=== PATIENT | female | born 1940 | race Caucasian/White ===

== ENCOUNTER → 2017-08-30 | Outpatient (CLI) | payer MEDICARE, OTHER ==
--- NOTE | 2017-08-30 09:34 | RAD ---
Pelvis one view INDICATION: Right hip pain IMPRESSION: Severe [id number] osteoarthrosis right hip. Left hip shows only very minimal degenerative change. No fracture or focal destructive lesion. No acetabular protrusio. No advanced collapse or definite avascular necrosis Electronically signed by: Roderick Kang MD 08/30/2017 9:32 AM CDT
--- NOTE | 2017-08-30 16:11 | CT ---
EXAM DESCRIPTION: Lower Extremity CLINICAL HISTORY: 76 years Female, PAIN IN RIGHT HIP COMPARISON: Radiograph of the pelvis performed on the same day. TECHNIQUE: Contiguous axial images through the right hip were performed without intravenous contrast administration. Sagittal, coronal and 3-D reconstructions were reviewed. FINDINGS: The visualized bones appear well mineralized. No acute fracture or dislocation. There is severe joint space narrowing, subchondral sclerosis, osteophyte formation and subchondral cysts in the right hip joint, consistent with moderate to severe osteoarthritis. Enthesopathy changes are identified along the greater trochanter. There is mild atrophy of the gluteus muscles. Incidental note is made of mild constipation. IMPRESSION: Moderate to severe osteoarthritis of the right hip joint. This exam was performed according to our departmental dose-optimization program, which includes automated exposure control, adjustment of the mA and/or kV according to patient size and/or use of iterative reconstruction technique. Electronically signed by: Deandra Ricketts MD 08/30/2017 4:10 PM CDT
== END ==
LOC: CT 13:23
PROVIDERS: ATTEND Orthopaedic Surgery
DX: M16.11 Unilateral primary osteoarthritis, right hip (principal)

== ENCOUNTER → 2017-09-13 | Outpatient (CLI) | payer MEDICARE, OTHER | LOC: LAB.O 11:16 | PROVIDERS: ATTEND Orthopaedic Surgery | DX: Z01.818 Encounter for other preprocedural examination (principal); M16.11 Unilateral primary osteoarthritis, right hip ==

== ENCOUNTER → 2017-10-19 | Outpatient (CLI) | payer MEDICARE, OTHER ==
--- NOTE | 2017-10-08 11:15 | HP ---
CHIEF COMPLAINT: Right hip pain. HISTORY OF PRESENT ILLNESS: Ms. Celaya is a 76-year-old female with a history of hip pain that has been going on for a very long time. She has had no trauma related to this, denies any radiation of pain and denies any neurologic symptoms. She has exhausted conservative measures and is having to rely on assistive devices for ambulation. Because of the failure of conservative measures, she has requested operative intervention. After discussing the risks , benefits and alternatives to that, the patient has given informed consent. PAST SURGICAL HISTORY: 1. x3. 2. Cardiac stent placement. MEDICATIONS: 1. Hydrocodone. 2. Osteo-BiFlex. ALLERGIES: NO KNOWN DRUG ALLERGIES. CODE STATUS: Full code. IMMUNIZATIONS: Up to date. FAMILY HISTORY: None pertinent to today's complaint. SOCIAL HISTORY: The patient does not drink, smoke or use any illicit drugs. REVIEW OF SYSTEMS: Negative except as indicated in the History of Present Illness. PHYSICAL EXAMINATION: VITAL SIGNS: Blood pressure 172/80. Pulse 65. Height 5'1". Weight 184 pounds. MENTAL STATUS: The patient is awake, alert, and is able to give a good history and participate in the physical. The patient is oriented to person, place and time. SKIN: Normal tone and turgor. HEENT: Normocephalic, atraumatic. Pupils equal, round and reactive. Mucosal membranes are moist. NECK: Normal range of motion. No thyromegaly, no lymphadenopathy. CHEST: Normal respiratory excursion. CARDIAC: Regular rate and rhythm. No murmurs, rubs or gallops. MUSCULOSKELETAL: She has full range of motion in the upper extremities. She has intact sensation as well. There is no deformity, no crepitus and no laxity in the extremities. The left lower extremity shows full range of motion in the hip. She has no significant pain with range of motion of the hip. She does have pain with range of motion of the knee and has pain to palpation. She has no instability, varus/valgus or anterior/posterior laxity. The right hip shows severe pain with range of motion during internal and external rotation. She has intact sensation distally. She walks with an antalgic gait. She has no deformity. She has flexion to about 90 degrees of the hip. Flexion of the knee is to about 120 degrees and she has full extension. IMAGING: X-rays show severe arthritis. ASSESSMENT: 1. Endstage arthritis of the hip. PLAN: The plan at this point is for total hip arthroplasty. We have discussed the risks, benefits, and alternatives to that and the patient has given informed consent. #[id number] [facility]
--- NOTE | 2017-10-08 21:25 | RAD ---
EXAM DESCRIPTION: Chest,2 Views CLINICAL HISTORY: 76 years Female, preop COMPARISON: None available. TECHNIQUE: PA and lateral radiographs of the chest were obtained. FINDINGS: Trachea is midline.The cardiomediastinal silhouette is normal in size. The pulmonary vasculature is within normal limits.The lungs are clear with no acute consolidation.No evidence of pleural effusions.No evidence of pneumothorax. IMPRESSION: No acute cardiopulmonary process. Electronically signed by: Skyler Plascencia MD 10/08/2017 9:24 PM CDT
== END ==
LOC: AMB 10-12 05:43 → EDSTATUS 10-12 07:00 → AMB 06:12
PROVIDERS: ATTEND Orthopaedic Surgery
DX: Z01.818 Encounter for other preprocedural examination (principal); M16.11 Unilateral primary osteoarthritis, right hip; Z53.9 Procedure and treatment not carried out, unspecified reason

== ENCOUNTER → 2017-12-03 | Outpatient (CLI) | payer MEDICARE, OTHER | LOC: RESP 11:53 | PROVIDERS: ATTEND Orthopaedic Surgery | DX: Z01.818 Encounter for other preprocedural examination (principal) ==

== ENCOUNTER 2017-12-15 05:26 | Inpatient (IN) | payer MEDICARE, OTHER ==
--- NOTE | 2017-12-10 09:10 | HP ---
CHIEF COMPLAINT: Right hip pain. HISTORY OF PRESENT ILLNESS: Ms. Celaya is a 76-year-old female with a history of pain that has been going on for years. She has had no trauma related to this , denies any radiation of pain or neurologic symptoms. She has exhausted conservative measures and is having to rely on assistive devices for ambulation. Because of the failure of conservative measures, she has requested operative intervention. After discussing the risks, benefits and alternatives to that, the patient has given informed consent. PAST SURGICAL HISTORY: 1. x3. 2. Cardiac stent placement. MEDICATIONS: 1. Hydrocodone. 2. Osteo Bi-Flex. ALLERGIES: NO KNOWN DRUG ALLERGIES. CODE STATUS: Full code. IMMUNIZATIONS: Up to date. FAMILY HISTORY: None pertinent to today's complaint. SOCIAL HISTORY: The patient does not drink, smoke or use any illicit drugs. REVIEW OF SYSTEMS: Negative except as indicated in the History of Present Illness. PHYSICAL EXAMINATION: VITAL SIGNS: Blood pressure 157/84. Pulse 77. Height 5'1". Weight 184 pounds. MENTAL STATUS: The patient is awake, alert, and is able to give a good history and participate in the physical. The patient is oriented to person, place and time. SKIN: Normal tone and turgor. HEENT: Normocephalic, atraumatic. Pupils equal, round and reactive. Mucosal membranes are moist. NECK: Normal range of motion. No thyromegaly, no lymphadenopathy. CHEST: Normal respiratory excursion. CARDIAC: Regular rate and rhythm. No murmurs, rubs or gallops. MUSCULOSKELETAL: She has bilateral upper extremities with full active range of motion. She has no significant pain. There is no crepitus with range of motion. There are no deformities in the upper extremities. The left lower extremity shows full range of motion of the hip. She has no significant pain in the hip or the knee. Sensation is intact. Strength is 5/ 5. It is warm and well perfused. The right lower extremity shows severe pain with any range of motion of the hip. She walks with an antalgic gait using an assistive device. The extremity is warm and well perfused. She has 0 degrees of internal rotation and she has about 20 degrees of external rotation. There is no overall malalignment or notable shortening. IMAGING: X-rays show severe arthritis. ASSESSMENT: 1. Osteoarthritis. PLAN: The plan at this point is for total hip arthroplasty. We have discussed the risks, benefits, and alternatives to that and the patient has given informed consent. #[id number] [facility]
[2017-12-15] MEDS ORDERED: SODIUM CHL 0.9% 100ML MINI-BAG 100 ML IVPB ONE ×2 (05:51→15:08)
[2017-12-15] MEDS ORDERED: LACTATED RINGERS 1,000 ML ONE (05:51)
[2017-12-15] MEDS ORDERED: SODIUM CHLORIDE 0.9% 250ML 250 ML ONE ×3 (05:53→23:39)
[2017-12-15] MEDS ORDERED: SODIUM CHLORIDE 0.9% 100ML 100 ML IVPB ONE ×3 (05:53→20:29)
[2017-12-15] MEDS ORDERED: TRANEXAMIC ACID 1,000 MG/10 ML VIAL ONE (05:53)
[2017-12-15] MEDS ORDERED: ceFAZolin SODIUM 1 GM VIAL ONE ×5 (05:53→20:29)
[2017-12-15] MEDS: TRANEXAMIC ACID 1,000 MG/10 ML VIAL ONE ×2 (06:24→06:42)
[2017-12-15] MEDS ORDERED: MORPHINE SULF *EPIDURAL* 1 MG/ML VIAL ONE (06:28)
[2017-12-15] MEDS ORDERED: ACETAMINOPHEN IV 1000MG 100 ML ONE (06:28)
[2017-12-15] MEDS ORDERED: ROCURONIUM BROMIDE 10 MG/ML VIAL ONE (06:28)
[2017-12-15] MEDS ORDERED: fentaNYL CITRATE INJ 50 MCG/ML AMP ONE (06:28)
[2017-12-15] MEDS ORDERED: MIDAZOLAM INJ 2 MG/2 ML VIAL ONE (06:28)
[2017-12-15] MEDS ORDERED: LACTATED RINGERS 1,000 ML BAG IV ONE ×2 (06:30→06:43)
[2017-12-15] MEDS: VANCOMYCIN HCL INJ 1,000 MG VIAL IVPB ONE ×4 (06:38→09:28)
[2017-12-15] MEDS ORDERED: HYDROmorphone HCL INJ 2 MG/ML VIAL ONE (07:23)
[2017-12-15] MEDS ORDERED: TEMAZEPAM 15 MG CAP PO PRN (07:44)
[2017-12-15] MEDS ORDERED: ACETAMINOPHEN 500 MG TAB PO PRN (07:44)
[2017-12-15] MEDS ORDERED: BISACODYL SUPPOSITORY 10 MG PR PRN (07:44)
[2017-12-15] MEDS ORDERED: traMADol HCL 50 MG TAB PO PRN (07:44)
[2017-12-15] MEDS ORDERED: CYCLOBENZAPRINE HCL 10 MG TAB PO PRN (07:44)
[2017-12-15] MEDS ORDERED: ALUMINUM & MAGNESIUM HYDROXIDE 30 ML UD PO PRN (07:44)
[2017-12-15] MEDS ORDERED: DEX 5% W/NACL 0.45% 1000ML 1,000 ML IVS PRN (07:44)
[2017-12-15] MEDS ORDERED: ACETAMINOPHEN 325 MG TAB PO PRN (07:44)
[2017-12-15] MEDS ORDERED: ONDANSETRON INJ 4 MG/2 ML VIAL IV PRN (07:44)
[2017-12-15] MEDS ORDERED: MORPHINE SULFATE INJ 10 MG/ML VIAL IM PRN (07:44)
[2017-12-15] MEDS ORDERED: MAGNESIUM HYDROXIDE 30 ML UD PO PRN (07:44)
[2017-12-15] MEDS ORDERED: PROMETHAZINE HCL INJ 12.5 MG in SODIUM CHLORIDE 0.9% 50ML 50 ML IVPB PRN (07:44)
[2017-12-15] MEDS ORDERED: SODIUM CHLORIDE 0.9% (FLUSH) 10 ML SYG IV PRN (07:44)
[2017-12-15] MEDS ORDERED: BENZOCAINE-MENTH LOZ (CEPACOL) 1 EA LOZ MT PRN (07:44)
[2017-12-15] MEDS ORDERED: PROMETHAZINE HCL INJ 25 MG in SODIUM CHLORIDE 0.9% 50ML 50 ML IVPB PRN (07:44)
[2017-12-15] MEDS ORDERED: MORPHINE SULFATE INJ 10 MG/ML VIAL IV PRN (07:44)
[2017-12-15] MEDS ORDERED: ZOLPIDEM TARTRATE 5 MG TAB PO PRN (07:44)
[2017-12-15] MEDS ORDERED: NALOXONE HCL INJ 0.4 MG/ML VIAL IV PRN (07:44)
[2017-12-15] MEDS ORDERED: TRANEXAMIC ACID INJ 1,000 MG in SODIUM CHLORIDE 0.9% 100ML 100 ML IVPB ONE (07:44)
[2017-12-15] MEDS ORDERED: MORPHINE PCA 1 MG/ML 100 ML BAG IVPB SCH (08:00)
[2017-12-15] MEDS: ceFAZolin SODIUM 1 GM VIAL ONE ×2 (08:15→09:28)
[2017-12-15] MEDS: BUPIVACAINE LIPOSOME 13.3 MG/ML VIAL INJ ONE ×2 (08:16→09:26)
[2017-12-15] MEDS: BUPIVACAINE 0.5% 30 ML VIAL INJ ONE ×2 (08:16→09:26)
[2017-12-15] MEDS ORDERED: ELECTROLYTE-A 1,000 ML IVS ONE ×2 (08:38→09:52)
[2017-12-15] MEDS ORDERED: PROPOFOL 200 MG/20 ML VIAL IV ONE (10:00)
[2017-12-15] MEDS ORDERED: ePHEDrine SULF 50 MG/ML IV ONE (10:00)
[2017-12-15] MEDS ORDERED: LIDOCAINE 1% 10 ML VIAL INJ ONE (10:00)
[2017-12-15] MEDS ORDERED: METOCLOPRAMIDE HCL INJ 10 MG/2 ML VIAL IV ONE (10:00)
[2017-12-15] MEDS ORDERED: raNITIdine HCL INJ 25 MG/ML VIAL IV ONE (10:00)
[2017-12-15] MEDS ORDERED: DEXAMETHASONE INJ 10 MG/ML VIAL IV ONE (10:00)
[2017-12-15] MEDS ORDERED: CEFAZOLIN SODIUM IVPB SCH (12:30)
[2017-12-15] MEDS ORDERED: ceFAZolin SODIUM 2 GM in SODIUM CHL 0.9% 100ML MINI-BAG 100 ML IVPB SCH (12:30)
--- NOTE | 2017-12-15 13:15 | RAD ---
'Two-view pelvis with two-view right hip Indication: post op Comparison: August 2017 Impression: New right total hip arthroplasty noted without complicating features. No right hip or pelvic fracture identified. Electronically signed by: Munir Kyle MD 12/15/2017 1:14 PM CDT
--- NOTE | 2017-12-15 14:12 | OP ---
DATE OF PROCEDURE: 12/15/17 PREOPERATIVE DIAGNOSIS: 1. Osteoarthritis of the hip. POSTOPERATIVE DIAGNOSIS: 1. Osteoarthritis of the hip. PROCEDURE: 1. Total hip arthroplasty. SURGEON: Victoriano Flynn MD. POSTAL MAIL CARRIER: Lex Houston CST, SA-[place]. ANESTHESIA: General anesthesia. COMPLICATIONS: None. FINDINGS: Severe arthritis of the hip. INDICATION: Ms. Celaya has a history of severe hip pain. She has had this going on for years and it has been getting progressively worse. She has failed conservative measures and as such, has requested operative intervention. After discussing the risks, benefits and alternatives to that, the patient has given informed consent for total hip arthroplasty. PROCEDURE: The patient was brought to the Operating Room and placed in supine position. General anesthesia was induced and the patient was transitioned into the left lateral decubitus position. The leg and hemipelvis were then sterilely prepped and draped. Following prepping and draping, an incision was made in line with the femur centered on the greater trochanter. The iliotibial band was split along the course of its fibers and the anterior one-third of the abductor musculature was elevated. The capsule was identified and incised. The hip was dislocated. The primary femoral neck cut was made. The acetabulum was then exposed and sequential reaming was undertaken. A size 51 reamer was utilized and a size 52 cup was trialed. It had an excellent fit and the final cup was impacted into place. The fixation was augmented with two screws. A 36 mm liner was placed and attention was then focused on the femur. Lateralizing reamer was used and sequential reaming was used up to a size 8 which then the canal was broached. Following a size 8 broach, the hip was reduced and taken through a range of motion. There was no impending dislocation, nor was there any instability. The leg lengths were checked and found to be within reasonable approximation. The hip was reduced and trial component was removed. The wound was thoroughly irrigated and the final component was impacted. A size 36 head was placed. The hip was again reduced and taken through a range of motion and the leg lengths were again confirmed. The wound was very thoroughly irrigated and the abductor musculature was reapproximated in an anatomic position. The iliotibial band was closed. The subcutaneous tissues were closed with a combination of running and interrupted subcuticular stitches. Sterile dressings were placed. The patient was awoken from anesthesia and taken to the Recovery Room. POSTOPERATIVE PLAN: The patient will be partial weightbearing on postoperative day 1. COMPONENTS: [place] Secur-Fit stem size 8, Tritanium cup size 52 with 36 mm head. #[id number] [facility]
[2017-12-15] MEDS: IV SET AND CAP CHANGE INJ INJ SCH (15:07)
[2017-12-15] MEDS: MAGNESIUM OXIDE 400 MG TAB PO SCH (15:07)
[2017-12-15] MEDS: ceFAZolin SODIUM 2 GM in SODIUM CHLORIDE 0.9% 100ML 100 ML IVPB SCH ×2 (15:33→23:29)
[2017-12-15] MEDS ORDERED: ceFAZolin SODIUM 2 GRAMS PREMI 2 GM in PREMIX BAG 1 BAG IVPB SCH (16:00)
[2017-12-15] MEDS ORDERED: VANCOMYCIN HCL INJ 1,000 MG VIAL IVPB ONE ×2 (17:30→23:40)
[2017-12-15] MEDS: VANCOMYCIN HCL INJ 1,000 MG in SODIUM CHLORIDE 0.9% 250ML 250 ML IVPB SCH (17:45)
[2017-12-15] MEDS: CELECOXIB 100 MG CAP PO SCH (17:45)
[2017-12-15] MEDS ORDERED: ENOXAPARIN SODIUM 40 MG/0.4 ML SYG SUBCU ONE (20:28)
[2017-12-15] MEDS: DOCUSATE CALCIUM 240 MG CAP PO SCH (21:07)
[2017-12-15] MEDS: ENOXAPARIN SODIUM 30 MG/0.3 ML SYG SUBCU SCH (23:31)
--- NOTE | 2017-12-15 23:54 | CONS ---
DATE OF CONSULTATION: 12/15/17 SUPERVISING PHYSICIAN: Justin Patricia M.D. CHIEF COMPLAINT: Right hip pain. HISTORY OF PRESENT ILLNESS: This is a 77 year-old female patient who has had right hip pain for many years. There was no trauma related to this and she has tried conservative measures to alleviate the pain. After failing conservative measures she requested Dr. Victoriano Flynn, orthopedic surgeon, for operative intervention for a right total hip replacement. Today, she had the hip replacement and she had no problems intraoperatively. I am seeing the patient postoperatively on the Medical/Surgical floor. PAST MEDICAL HISTORY: 1. Borderline hypertension, although she occasionally takes Lisinopril for it. She usually takes no medications. PAST SURGICAL HISTORY: 1. section times 3. 2. Cardiac stent placement. 3. Toe surgery. OUTPATIENT MEDICATIONS: 1. Hydrocodone. 2. Osteo Bi-Flex. 3. Lisinopril 5 mg p.r.n. ALLERGIES: NO KNOWN DRUG ALLERGIES. CODE STATUS: FULL CODE. FAMILY HISTORY: Noncontributory. SOCIAL HISTORY: She lives in [place]. Her primary care physician is Dr. Smiley Davis. She denies any tobacco, ETOH or illicit drug use. REVIEW OF SYSTEMS: Negative except as per history of present illness. PHYSICAL EXAMINATION: VITAL SIGNS: She is afebrile, heart rate 77, blood pressure 135/71, respiratory rate 16, O2 sat 95% on room air. GENERAL: This is a 77 year-old female patient lying in her hospital bed. She is in no acute distress. HEENT: Normocephalic and atraumatic. Pupils are equal and reactive. Oropharynx is clear. NECK: Supple without mass. RESPIRATORY: Essentially clear to auscultation bilaterally. CHEST: There is equal rise and fall of the chest with inspiration and expiration. HEART: Regular rate and rhythm. No murmurs noted. SKIN: No lesions or rashes. EXTREMITIES: There is a dressing to her right lateral hip that is dry and intact. Her bilateral pedal pulses are palpable at +2. LABORATORY: Urinalysis this AM shows a trace of lysed urine blood and trace urine leukocyte esterase. All other labs and films have been reviewed via the EMR. IMPRESSION: 1. Osteoarthritis of the right hip failed outpatient therapy with right hip replacement performed today per Dr. Victoriano Flynn, orthopedic surgeon. Postoperative day 0. 2. Mild hypertension presently on no medications. PLAN: We will continue present supportive care. Orthopedic issues will be per Dr. Victoriano lFynn, orthopedic surgeon. Tomorrow she will begin her strengthening and rehab per Physical Therapy. She did not have any home medications to start at this time but I will watch her blood pressure in case we need to add the Lisinopril, but at this time I will hold on that. I have encouraged good pulmonary hygiene. We will follow the patient as needed. #[id number] [facility]
[2017-12-16] MEDS: VANCOMYCIN HCL INJ 1,000 MG in SODIUM CHLORIDE 0.9% 250ML 250 ML IVPB SCH (05:33)
[2017-12-16] MEDS ORDERED: ceFAZolin SODIUM 1 GM VIAL ONE (07:15)
[2017-12-16] MEDS ORDERED: SODIUM CHLORIDE 0.9% 100ML 100 ML IVPB ONE (07:15)
--- NOTE | 2017-12-16 07:52 | PN ---
DATE: 12/16/17 SUBJECTIVE: Ms. Celaya is doing really well and she is up to the side of the bed. OBJECTIVE: Afebrile. Vital signs stable. Dressing is clean, dry and intact. ASSESSMENT: Status post total hip arthroplasty. PLAN: The plan is to begin partial weightbearing today. [facility][id number] [facility]
--- NOTE | 2017-12-16 07:53 | PN ---
DATE: 12/15/17 POSTOPERATIVE CHECK SUBJECTIVE: Ms. Celaya is doing well and she is without pain right now. OBJECTIVE: Afebrile. Vital signs stable. Dressing is clean, dry and intact. ASSESSMENT: Status post total hip arthroplasty. PLAN: The plan is to begin partial weightbearing on postoperative day 1. [facility][id number] [facility]
[2017-12-16] MEDS: CELECOXIB 100 MG CAP PO SCH ×2 (07:55→17:08)
[2017-12-16] MEDS: ceFAZolin SODIUM 2 GM in SODIUM CHLORIDE 0.9% 100ML 100 ML IVPB SCH (07:56)
[2017-12-16] MEDS: HYDROcodone 5MG/APAP 325MG 1 EA TAB PO PRN (08:37)
[2017-12-16] MEDS: MAGNESIUM OXIDE 400 MG TAB PO SCH (08:38)
[2017-12-16] MEDS: ENOXAPARIN SODIUM 30 MG/0.3 ML SYG SUBCU SCH ×2 (11:28→22:11)
--- NOTE | 2017-12-16 13:47 | PN ---
SUPERVISING PHYSICIAN: Justin Patricia MD DATE: 12/16/17 SUBJECTIVE: The patient is sitting up in her chair in her hospital room. Her is at bedside. She has no complaints of chest pain, shortness of breath , nausea, vomiting, diarrhea. She did complain that she was unable to sleep last night and would like some melatonin to assist with her sleeping. She feels like her physical therapy went as scheduled. OBJECTIVE: VITAL SIGNS: Afebrile. Heart rate 88. Blood pressure 115/69. Respiratory rate 18. O2 saturation5 9% on room air. RESPIRATORY: Essentially clear to auscultation bilaterally. CARDIAC: Regular rate and rhythm. GASTROINTESTINAL: Abdomen is soft, nondistended, nontender. Bowel sounds are positive. EXTREMITIES: She has a dressing to her left lateral hip that is dry and intact. Bilateral pedal pulses are palpable at +2. NEUROLOGIC: Awake, alert and oriented times three. LABORATORY: Hemoglobin 12.3, hematocrit 36.9. All other labs and films have been reviewed via the EMR. ASSESSMENT: 1. Osteoarthritis of the right hip failed outpatient therapy with right hip replacement performed per Dr. Victoriano Flynn, orthopedic surgeon. Postoperative day 1. 2. Mild hypertension, presently on no medications. PLAN: We will continue present supportive care. Orthopedic issues will be per Dr. Victoriano Flynn, orthopedic surgeon. She will continue with her physical therapy for strengthening and conditioning. I encouraged good pulmonary hygiene. I ordered her some melatonin for sleep at night. She usually takes 10 mg at night. I ordered 9 mg for her scheduled. We will continue to monitor the patient closely and follow as needed. She does have schedule to do outpatient physical therapy in [place] on discharge. #[id number] [facility]
[2017-12-16] MEDS: MELATONIN 3 MG TAB PO SCH (20:47)
[2017-12-16] MEDS: DOCUSATE CALCIUM 240 MG CAP PO SCH (20:47)
[2017-12-17] MEDS: HYDROcodone 5MG/APAP 325MG 1 EA TAB PO PRN (04:47)
[2017-12-17] MEDS: CELECOXIB 100 MG CAP PO SCH ×2 (07:50→16:43)
[2017-12-17] MEDS: MAGNESIUM OXIDE 400 MG TAB PO SCH (07:50)
[2017-12-17] MEDS: SODIUM CHLORIDE 0.9% (FLUSH) 10 ML SYG IV SCH ×2 (08:38→21:45)
[2017-12-17] MEDS: ENOXAPARIN SODIUM 30 MG/0.3 ML SYG SUBCU SCH ×2 (11:30→23:23)
--- NOTE | 2017-12-17 19:32 | PN ---
DATE: 12/17/17 SUPERVISING PHYSICIAN: Justin Patricia M.D. SUBJECTIVE: The patient has been doing her physical therapy and has good control of her pain. She has been afebrile. She has been without any nausea or vomiting. OBJECTIVE: VITAL SIGNS: Temperature 98.2, pulse 76, blood pressure 118/68, respirations 18, satting 97% on room air. I's and O's show a negative balance of 282 with 1543 in, 1825 out. She is at 83.9 kg for weight. GENERAL: The patient appears to be without any acute distress. She is alert. CHEST: Lungs are clear to auscultation bilaterally. HEART: Regular rate and rhythm. ABDOMEN : Obese but soft, non-tender. Positive bowel sounds. EXTREMITIES: Right hip has a dressing in place that is clean and dry. Distally pulses were strong, capillary refill brisk. NEUROLOGIC: She is alert and oriented times three. ASSESSMENT: 1. Postoperative day 2 for elective total right hip arthroplasty having failed to respond to outpatient treatment measures secondary to ongoing chronic osteoarthritis with surgery being performed by Dr. Victoriano Flynn. 2. Mild hypertension, monitoring. PLAN: Will continue to follow the patient as she progresses through her physical therapy efforts. Physical Therapy anticipates hopefully being able to discharge tomorrow. She will continue with her rehabilitation efforts through outpatient therapy services in [place]. Hopefully be able to discharge tomorrow. Will continue with Xarelto 10 mg for a total of 35 days per protocol. Until discharge will monitor and treat appropriately. #[id number] [facility]
[2017-12-17] MEDS: DOCUSATE CALCIUM 240 MG CAP PO SCH (21:18)
[2017-12-17] MEDS: MELATONIN 3 MG TAB PO SCH (21:18)
[2017-12-18] MEDS: HYDROcodone 5MG/APAP 325MG 1 EA TAB PO PRN (05:14)
[2017-12-18] MEDS: CELECOXIB 100 MG CAP PO SCH (07:16)
[2017-12-18] MEDS: IV SET AND CAP CHANGE INJ INJ SCH (07:43)
[2017-12-18] MEDS: SODIUM CHLORIDE 0.9% (FLUSH) 10 ML SYG IV SCH (08:15)
[2017-12-18] MEDS: MAGNESIUM OXIDE 400 MG TAB PO SCH (08:16)
[2017-12-18 10:02] VITALS: BP 103/74; TEMP 98.4; O2SAT 98
[2017-12-18] MEDS: ENOXAPARIN SODIUM 30 MG/0.3 ML SYG SUBCU SCH (11:12)
[2017-12-18] MEDS ORDERED: BISACODYL SUPPOSITORY 10 MG PR ONE (21:00)
[2017-12-18] MEDS ORDERED: MAGNESIUM HYDROXIDE 30 ML UD PO ONE (21:00)
--- NOTE | 2017-12-20 20:43 | DS ---
SUPERVISING PHYSICIAN: Justin Patricia M.D. ADMISSION DIAGNOSIS: 1. Osteoarthritis of the right hip having failed outpatient therapy with elective total hip replacement performed on date of admission per Dr. Victoriano Flynn. 2. Mild hypertension currently not taking any medications. DISCHARGE DIAGNOSIS: 1. Postoperative day 2 for elective total right hip arthroplasty having failed to respond to outpatient treatment measures secondary to ongoing chronic osteoarthritis with surgery being performed by Dr. Victoriano Flynn. 2. Mild hypertension, stable, no on any current medications. REASON FOR HOSPITALIZATION: Ms. Celaya is a 77 year-old female patient who has had right hip pain for multiple years. She denied any trauma resulting in the pain and had tried many efforts at conservative treatment measures to alleviate the pain. After she failed to have any relief from conservative measures, she requested elective total right hip arthroplasty to be performed by Dr. Victoriano Flynn to help with symptomology. She had no intraoperative complications and was seen in the immediate postoperative state in stable condition. LABORATORY: Postoperative H&H was 12.3 and 36.9. Urinalysis showed a trace of blood with trace leukocyte esterase, otherwise within normal limits. CONSULTATION: Medical consultation with hospitalist. Please see that note for full details. PROCEDURE: Elective right total hip arthroplasty performed by Dr. Victoriano Flynn. Please see his Operative Note for details. HOSPITAL COURSE: Ms. Celaya was admitted for elective total hip arthroplasty on 12/15/17. She had no complications intraoperatively and was seen in the immediate postoperative state and followed through her entire hospitalization. She was found to be stable with good pain control and was progressing well with her goals of physical therapy. It was felt that she had progressed well enough to discharge to continue with outpatient management. PLAN: Ms. Celaya was discharged on 12/18/17 with instructions to followup with Dr. Flynn as scheduled and to resume her physical therapy through [facility]. Diet at discharge was a regular diet as tolerated. Activity is as per Physical Therapy. She is to walk with a walker only. Wound management was as per Physical Therapy and instructions per Dr. Victoriano Flynn. She can shower but no tub bath. Medications prescribed at discharge included: 1. Flexeril 10 mg every 8 hours as needed, #15. 2. [place] 5/325 one every 4 hours as needed. Prescription written by Dr. Flynn. 3. Xarelto 10 mg daily, #31. All other medications prior to admission were resumed. DISPOSITION: The patient is discharged to the care of her . The patient was stable and improved. #[id number] [facility]
== END 2017-12-18 11:50 | disposition home or self-care (01) | DRG 470 ==
LOC: AMB 05:26 → MS 12:07
PROVIDERS: ADMIT Orthopaedic Surgery; ATTEND Nurse Practitioner Family
PROC: 0SR90JZ Replacement of Right Hip Joint with Synthetic Substitute, Open Approach (ICD-10-PCS; principal; 2017-12-15 07:24)
DX: M16.11 Unilateral primary osteoarthritis, right hip (principal); Z95.5 Presence of coronary angioplasty implant and graft; I10 Essential (primary) hypertension